=== PATIENT | female | born 1965 | race Caucasian/White ===

== ENCOUNTER 2020-06-24 10:13 | Emergency (ER) | payer BC, SELFPAY ==
--- NOTE | 2020-06-24 10:30 | ED.DENTAL ---
HPI - Dental/Oral General Chief complaint: Dental/Oral Stated complaint: Right side face swelling Time Seen by Provider: 06/24/20 10:30 Source: patient and RN notes reviewed History of Present Illness HPI Narrative: Patient is a 55-year-old female who presents the urgent care with complaints of right upper facial swelling. Patient states that it started yesterday and she has been using ice pack for the swelling. Patient denies any pain and denies taking anything [id number] for her symptoms. Patient states that approximately 1 year ago she broke 2 teeth on the upper right side and believes that they may be infected . Patient denies of any known trauma. Denies any fever, chills, nausea, vomiting. No other acute complaints. No acute distress noted. Patient aware of the plan of care. Some parts of this dictation were generated by voice recognition software and may contain typographical and/or grammatical inaccuracies. Related Data Home Medications Medication Instructions Recorded Confirmed insulin aspart U-100 06/24/20 levothyroxine [Synthroid] 06/24/20 Allergies Allergy/AdvReac Type Severity Reaction Status Date / Time naproxen [From Aleve] Allergy Hallucinati Verified 06/24/20 10:25 ng Review of Systems Review of Systems: Narrative: CONSTITUTIONAL: Denies fever, chills, or sweats. EYES: Denies visual changes, redness, or discharge. ENT: Denies rhinorrhea, congestion, sore throat, or otalgia. Reports of facial swelling and fractured tooth CARDIOVASCULAR: Denies chest pain, palpitations, or edema. RESPIRATORY: Denies cough or dyspnea. GASTROINTESTINAL: Denies abdominal pain, nausea, vomiting, or diarrhea. GENITOURINARY: Denies dysuria or hematuria. SKIN: Denies rash or itching. MUSCULOSKELETAL: Denies back pain, joint pain, or myalgia. NEUROLOGIC: Denies headache, numbness, or weakness. All other systems reviewed are negative, except as documented in HPI. PMFSH Comments At the time of my signature, I reviewed and agree with the nursing past medical, surgical, social, and family history. There is no relevant family history pertinent to the patient complaint. Exam Narrative: Exam Narrative: GENERAL: This is a well-nourished, well-developed patient, in no apparent distress. HEAD: normocephalic, atraumatic. Mild to moderate right upper facial swelling EYES: PERRL. Sclera clear/white. Vision is grossly intact. EARS: External ears normal NOSE: External nose normal with no obvious nasal discharge, nares without redness, no rhinorrhea. THROAT: Mucous membranes moist, posterior pharynx clear. DENTAL: Large notable carious lesions, fractured cusps noted to the right upper lateral incisor and right upper canine. Carious lesion noted to right upper second molar; no obvious draining abscess. NECK: Neck supple, non-tender without lymphadenopathy SKIN: warm, intact with no suspicious lesions or rash, good texture and turgor. NEURO: awake, alert, and oriented to person, place and time. There were no obvious focal neurologic abnormalities. EXTREMITIES: No clubbing, cyanosis, or edema. Course Vital Signs Vital signs: Vital Signs Temperature 97.8 F 06/24/20 10:33 Pulse Rate 79 06/24/20 10:33 Respiratory Rate 16 06/24/20 10:33 Blood Pressure 171/73 H 06/24/20 10:33 Pulse Oximetry 99 06/24/20 10:33 Temperature 97.8 F 06/24/20 10:33 Pulse Rate 79 06/24/20 10:33 Respiratory Rate 16 06/24/20 10:33 Blood Pressure 171/73 H 06/24/20 10:33 Pulse Oximetry 99 06/24/20 10:33 Reviewed-patient is informed that they may have pre-hypertension or hypertension based on a blood pressure reading in the department. I recommend the patient call the primary care provider listed on their discharge instructions or a physician of their choice this week to arrange follow-up for further evaluation of possible pre-hypertension or hypertension. MDM - Dental/Oral MDM Narrative Medical decision making narrativ
[2020-06-24 10:33] VITALS: BP 171/73; PULSE 79; RESP 16; TEMP 36.6; O2SAT 99
== END 2020-06-24 10:37 | disposition home or self-care (01) ==
PROVIDERS: Emergency Provider Nurse Practitioner Family
DX: K04.7 Periapical abscess without sinus (principal); E11.9 Type 2 diabetes mellitus without complications; E03.9 Hypothyroidism, unspecified; M50.321 Other cervical disc degeneration at C4-C5 level; M50.322 Other cervical disc degeneration at C5-C6 level
CPT/HCPCS: 99203; G0463